=== PATIENT | female | born 1995 | race Caucasian/White ===

== ENCOUNTER 2018-11-08 14:30 | Emergency (ER) | payer BC ==
--- NOTE | 2018-11-08 15:30 | EDM.PDOC ---
ED HPI GENERAL MEDICAL PROBLEM - General Chief Complaint: Neurological Problem Stated Complaint: Facial weakness Time Seen by Provider: 11/08/18 14:40 - History of Present Illness INITIAL COMMENTS - FREE TEXT/NARRATIVE: 23-year-old female now at 37 weeks gestation presents with right-sided facial weakness. Patient has noticed weakness trying to close her right eye and she doesn't close it as tight as she does on the left side. The patient has had intermittent symptoms not being able to smile as much on the right side as compared to the left she does not have significant sensory on it with this however at the onset of her symptoms she was having some odd sensations on the inside of her mouth that she has a hard time trying to describe this seems to have resolved. Patient has not had any recent fevers or chills. She is 37 weeks she is a 1 para 0. Patient has noticed very frequent and active movements. 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: - Past Surgical History HEENT Surgical History: Reports: Adenoidectomy, Tonsillectomy Social & Family History - Family History Family Medical History: Unobtainable - Tobacco Use Smoking Status *Q: Never Smoker - Caffeine Use Caffeine Use: Reports: Soda - Recreational Drug Use Recreational Drug Use: No ED ROS GENERAL - Review of Systems Review Of Systems: See Below Constitutional: Reports: No Symptoms HEENT: Denies: Eye Discharge, Eye Pain Respiratory: Reports: No Symptoms Cardiovascular: Reports: No Symptoms Endocrine: Reports: No Symptoms GI/Abdominal: Reports: No Symptoms : Reports: No Symptoms Musculoskeletal: Reports: No Symptoms Skin: Reports: No Symptoms Neurological: Reports: Other (Facial weakness as described above). Denies: Pre- Existing Deficit Psychiatric: Reports: No Symptoms ED EXAM, NEURO - Physical Exam Exam: See Below Exam Limited By: No Limitations General Appearance: Alert, No Apparent Distress Ears: Normal External Exam, Normal Canal, Hearing Grossly Normal, Normal TMs Nose: Normal Inspection, Normal Mucosa, No Blood Throat/Mouth: Normal Inspection, Normal Lips, Normal Teeth, Normal Gums, Normal Oropharynx, Normal Voice, No Airway Compromise Head Exam: Atraumatic, Normocephalic Neck: Normal Inspection, Supple, Non-Tender, Full Range of Motion Respiratory/Chest: No Respiratory Distress, Lungs Clear, Normal Breath Sounds Cardiovascular: Regular Rate, Rhythm, No Edema, No Murmur Neurological: Alert, Normal Mood/Affect, Other (He seems to close her right eye completely but not as tight as she does some left. And her smile and right sided movement of the lips is slightly diminished compared to the left) Course - Vital Signs Last Recorded V/S: Last Vital Signs Temp 36.5 C 11/08/18 14:47 Pulse 80 11/08/18 14:47 Resp 20 11/08/18 14:47 BP 134/88 11/08/18 14:47 Pulse Ox 99 11/08/18 14:47 - Re-Assessments/Exams Free Text/Narrative Re-Assessment/Exam: 11/08/18 15:[address] Mcgee will start Valtrex and prednisone. The patient has follow-up with Dr. Mcgee the middle of this next week. 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 Follow-up with Dr. Mcgee this next week as scheduled. Use the Valtrex one 3 times a day for 7 days use the prednisone, first dose as soon as you get it then every morning with breakfast thereafter. Use artificial tears to the right eye as needed during the day. Use the Lacri-Lube in the right eye and patch in the closed position nightly as we discussed
== END 2018-11-08 16:15 | disposition home or self-care (01) ==
LOC: JD.OBCHECK 14:30 → JD.ED 14:30 → EDSTATUS 14:36 → JD.ED 16:30
DX: O99.353 Diseases of the nervous system complicating pregnancy, third trimester (principal); G51.0 Bell's palsy; Z91.048 Other nonmedicinal substance allergy status; Z91.018 Allergy to other foods; Z88.8 Allergy status to other drugs, medicaments and biological substances; Z3A.37 37 weeks gestation of pregnancy
CPT/HCPCS: 99283

== ENCOUNTER 2018-11-18 03:26 | Inpatient (IN) | payer BC ==
[~2018-11-18 03:26] MED LIST: Bupivacaine 0.25% 10 ML SDV ONE
[2018-11-18] MEDS ORDERED: Nalbuphine 10 MG/1 ML Vial IVPUSH PRN (04:16)
[2018-11-18] MEDS ORDERED: Sodium Chloride 0.9% 10 ML Syringe FLUSH PRN (04:16)
--- NOTE | 2018-11-18 07:09 | PCM.LDHP ---
L&D History of Present Illness - General Date of Service: 11/18/18 Admit Problem/Dx: Patient Status Order with Admit Dx/Problem 11/18/18 03:52 Patient Status [ADT] Routine 11/18/18 04:16 Patient Status [ADT] Routine Admission Diagnosis/Problem Admission Diagnosis/Problem Source of Information: Patient History Limitations: Reports: No Limitations - History of Present Illness Introduction:: Patient is a 23 y/o at 38 5/7 wks who presents this AM with SROM. Occurred at about 0300 or so this AM. 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: : 1 Para: 0 LMP (Approximate): Musculoskeletal History: Reports: Other (See Below) Other Musculoskeletal History: bunion right foot Neurological History: Reports: Migraines, Other (See Below) Other Neuro History: brambila's palsy 2 weeks ago Psychiatric History: Reports: Anxiety, Depression - Past Surgical History HEENT Surgical History: Reports: Adenoidectomy, Oral Surgery, Tonsillectomy Social & Family History - Family History Family Medical History: Unobtainable - Tobacco Use Smoking Status *Q: Never Smoker - Caffeine Use Caffeine Use: Reports: Soda - Alcohol Use Alcohol Use History: No - Recreational Drug Use Recreational Drug Use: No H&P Review of Systems - Review of Systems: Review Of Systems: See Below General: Reports: No Symptoms Pulmonary: Reports: No Symptoms Cardiovascular: Reports: No Symptoms Gastrointestinal: Reports: No Symptoms Genitourinary: Reports: No Symptoms Musculoskeletal: Reports: No Symptoms Psychiatric: Reports: No Symptoms Neurological: Reports: No Symptoms L&D Exam - Exam Exam: See Below - Vital Signs Vital Signs: Last Vital Signs Temp 36.6 C 11/18/18 03:38 Pulse 63 11/18/18 03:38 Resp 16 11/18/18 03:38 BP 124/78 11/18/18 03:38 Pulse Ox Weight: 69.581 kg - OB Specific Contraction Intensity: Mild Movement: Active Heart Tones: Present Heart Tones per Min: 140 Heart Rate (FHR) Variability: Moderate (6-25 bmp) Presentation: Vertex - Varela Score Varela Score Cervix Position: Midposition Varela Score Consistency: Soft Varela Score Effacement: 31-50% Varela Score Dilation: 1-2 cm Varela Score Infant's Station: -2 Varela Score Total: 6 - Exam General: Alert, Oriented, Cooperative Lungs: Clear to Auscultation, Normal Respiratory Effort Cardiovascular: Regular Rate, Regular Rhythm GI/Abdominal Exam: Soft, Non-Tender Genitourinary: Normal external exam Extremities: Normal Inspection Skin: Warm, Dry, Intact - Patient Data Lab Results Last 24 hrs: Laboratory Results - last 24 hr 11/18/18 11/18/18 Range/Units 03:45 04:25 WBC 10.02 (3.98-10.04) K/mm3 RBC 4.25 (3.98-5.22) M/mm3 Hgb 13.2 (11.2-15.7) gm/dl Hct 39.8 (34.1-44.9) % MCV 93.6 (79.4-94.8) fl MCH 31.1 (25.6-32.2) pg MCHC 33.2 (32.2-35.5) g/dl RDW Std Deviation 45.5 (36.4-46.3) fL Plt Count 160 L (182-369) K/mm3 MPV 13.1 H (9.4-12.3) fl Neut % (Auto) 62.9 (34.0-71.1) % Lymph % (Auto) 26.9 (19.3-51.7) % [place] % (Auto) 8.8 (4.7-12.5) % Eos % (Auto) 1.1 (0.7-5.8) Baso % (Auto) 0.2 (0.1-1.2) % Neut # (Auto) 6.30 H (1.56-6.13) K/mm3 Lymph # (Auto) 2.70 (1.18-3.74) K/mm3 [place] # (Auto) 0.88 H (0.24-0.36) K/mm3 Eos # (Auto) 0.11 (0.04-0.36) K/mm3 Baso # (Auto) 0.02 (0.01-0.08) K/mm3 Membrane Rupture Positive H Result Diagrams: 11/18/18 04:25 - Problem List (1) SROM (spontaneous rupture of membranes) SNOMED Code(s): 852576560 ICD Code: HGY0710 - Status: Acute Current Visit: Yes (2) 38 weeks gestation of SNOMED Code(s): 29350838 ICD Code: Z3A.38 - 38 WEEKS GESTATION OF Status: Acute Current Visit: Yes Problem List Initiated/Reviewed/Updated: Yes Orders Last 24hrs: Active Orders 24 hr Category Date Time Status Patient Status [ADT] Routine ADT 11/18/18 04:16 Active Activity as Tolerated [RC] PFP Care 11/18/18 04:16 Active Communication Order [RC] ASDIRECTED Care 11/18/18 04:16 Active Heart Tones [RC] ASDIRECTED Care 11/18/18 04:16 Active Non Stress Test [RC] PER UNIT ROUTINE Care 11/18/18 03:52 Active Notify Provider [RC] PFP Care 11/18/18 04:16 Active Notify Provider [RC] PRN Care 11/18/18 04:16 Active Peripheral IV Care [RC] . DIRECTED Care 11/18/18 04:16 Active Vital Signs [RC] PER UNIT ROUTINE Care 11/18/18 03:52 Active Regular Diet [DIET] Diet 11/18/18 Breakfast Active RAPID PLASMA REAGIN,RPR [CHEM] Routine Lab 11/18/18 04:25 Received TYPE AND SCREEN [BBK] Stat Lab 11/18/18 04:25 Received Lactated Ringers [Ringers, Lactated] 1,000 ml Med 11/18/18 04:30 Active IV ASDIRECTED Nalbuphine [Nubain] Med 11/18/18 04:16 Active 10 mg IVPUSH Q2H PRN Sodium Chloride 0.9% [Saline Flush] Med 11/18/18 04:16 Active 10 ml FLUSH ASDIRECTED PRN Electronic Heart Tones Ext w TOCO [WOMSER] Oth 11/18/18 04:16 Ordered Routine Electronic Heart Tones Internal [WOMSER] Per Unit Oth 11/18/18 04:16 Ordered Routine Peripheral IV Insertion Adult [OM.PC] Routine Oth 11/18/18 04:16 Ordered Resuscitation Status Routine Resus Stat 11/18/18 03:52 Ordered Medication Orders Lactated Ringer's (Ringers, Lactated) 1,000 mls @ 100 mls/hr IV ASDIRECTED BETTYE Nalbuphine HCl (Nubain) 10 mg IVPUSH Q2H PRN PRN Reason: Pain Sodium Chloride (Saline Flush) 10 ml FLUSH ASDIRECTED PRN PRN Reason: Keep Vein Open Assessment/Plan Comment:: 23 y/o at 38 5/7 wks presents with SROM * Labs to be done * GBS negative, no need for antibiotics * Pain management per patient preference * Anticipate
[2018-11-18] MEDS ORDERED: fentaNYL/Bupivacaine in NS PF 2 MCG-0.125% 250 ML Premix EPIDUR PRN (07:40)
[2018-11-18] MEDS ORDERED: fentaNYL 100 MCG/2 ML SDV EPIDUR PRN (07:40)
[2018-11-18] MEDS ORDERED: diphenhydrAMINE 50 MG/ML SDV IVPUSH PRN (07:40)
[2018-11-18] MEDS ORDERED: ePHEDrine 50 MG/ML SDV IVPUSH PRN (07:40)
[2018-11-18] MEDS ORDERED: Oxytocin/Lactated Ringers 10 UNIT/1,000 ML BAG IV SCH ×2 (10:15)
[2018-11-18] MEDS: Lactated Ringers 1,000 ML IV SCH ×2 (10:17→16:47)
--- NOTE | 2018-11-18 17:20 | PCM.PREANE ---
Preanesthetic Assessment - Procedure Proposed Procedure: Epidural - Anesthesia/Transfusion/Family Hx Anesthesia History: Prior Anesthesia Without Reaction Family History of Anesthesia Reaction: No Transfusion History: No Prior Transfusion(s) - Review of Systems General: Fatigue Pulmonary: No Symptoms Cardiovascular: No Symptoms Gastrointestinal: Abdominal Pain (labor) Neurological: No Symptoms Other: Reports: None - Physical Assessment Vital Signs: Last Vital Signs Temp 36.6 C 11/18/18 03:38 Pulse 63 11/18/18 03:38 Resp 16 11/18/18 03:38 BP 124/78 11/18/18 03:38 Pulse Ox Height: 1.55 m Weight: 69.581 kg ASA Class: 2 Mental Status: Alert & Oriented x3 Airway Class: Mallampati = 1 Dentition: Reports: Normal Dentition Thyro-Mental Finger Breadths: 3 Mouth Opening Finger Breadths: 3 ROM/Head Extension: Full Lungs: Clear to Auscultation, Normal Respiratory Effort Cardiovascular: Regular Rate, Regular Rhythm - Lab Values: Laboratory Last Values WBC 10.02 K/mm3 (3.98-10.04) 11/18/18 04:25 RBC 4.25 M/mm3 (3.98-5.22) 11/18/18 04:25 Hgb 13.2 gm/dl (11.2-15.7) 11/18/18 04:25 Hct 39.8 % (34.1-44.9) 11/18/18 04:25 MCV 93.6 fl (79.4-94.8) 11/18/18 04:25 MCH 31.1 pg (25.6-32.2) 11/18/18 04:25 MCHC 33.2 g/dl (32.2-35.5) 11/18/18 04:25 RDW Std Deviation 45.5 fL (36.4-46.3) 11/18/18 04:25 Plt Count 160 K/mm3 (182-369) L 11/18/18 04:25 MPV 13.1 fl (9.4-12.3) H 11/18/18 04:25 Neut % (Auto) 62.9 % (34.0-71.1) 11/18/18 04:25 Lymph % (Auto) 26.9 % (19.3-51.7) 11/18/18 04:25 [place] % (Auto) 8.8 % (4.7-12.5) 11/18/18 04:25 Eos % (Auto) 1.1 (0.7-5.8) 11/18/18 04:25 Baso % (Auto) 0.2 % (0.1-1.2) 11/18/18 04:25 Neut # (Auto) 6.30 K/mm3 (1.56-6.13) H 11/18/18 04:25 Lymph # (Auto) 2.70 K/mm3 (1.18-3.74) 11/18/18 04:25 [place] # (Auto) 0.88 K/mm3 (0.24-0.36) H 11/18/18 04:25 Eos # (Auto) 0.11 K/mm3 (0.04-0.36) 11/18/18 04:25 Baso # (Auto) 0.02 K/mm3 (0.01-0.08) 11/18/18 04:25 Membrane Rupture Positive H 11/18/18 03:45 Blood Type AB POSITIVE 11/18/18 04:25 Gel Antibody Screen Negative 11/18/18 04:25 - Allergies Allergies/Adverse Reactions: Allergies Allergy/AdvReac Type Severity Reaction Status Date / Time adhesive tape Allergy Itching Verified 11/18/18 03:43 melon Allergy Itching Verified 11/18/18 03:43 sumatriptan [From Imitrex] Allergy Rash Verified 11/18/18 03:43 - Anesthesia Plan Pre-Op Medication Ordered: None - Acknowledgements Anesthesia Type Planned: Epidural Pt an Appropriate Candidate for the Planned Anesthesia: Yes Alternatives and Risks of Anesthesia Discussed w Pt/Guardian: Yes Pt/Guardian Understands and Agrees with Anesthesia Plan: Yes PreAnesthesia Questionnaire Gastrointestinal History: Reports: GERD 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: Musculoskeletal History: Reports: Other (See Below) Other Musculoskeletal History: bunion right foot Neurological History: Reports: Migraines, Other (See Below) Other Neuro History: brambila's palsy 2 weeks ago Psychiatric History: Reports: Anxiety, Depression - Past Surgical History HEENT Surgical History: Reports: Adenoidectomy, Oral Surgery, Tonsillectomy - SUBSTANCE USE Smoking Status *Q: Never Smoker Recreational Drug Use History: No - HOME MEDS Home Medications: Home Meds Folic Acid/Vit B Complex and C [Eql Super B Complex Tablet] 400 mcg PO DAILY 03/26 [History] Vits #93/Iron Fum/FA [ Formula Tablet] 1 tab PO DAILY 11/06/18 [History] Sertraline [Zoloft] 50 mg PO DAILY 11/06/18 [History] - CURRENT (IN HOUSE) MEDS Current Meds: Current Medications Diphenhydramine HCl (Benadryl) 25 mg IVPUSH Q6H PRN PRN Reason: Itching Ephedrine Sulfate (Ephedrine Sulfate) 5 mg IVPUSH ASDIRECTED PRN PRN Reason: HYPOTENTSION Fentanyl (Sublimaze) 100 mcg EPIDUR Q3H PRN PRN Reason: Pain Last Admin: 11/18/18 16:47 Dose: 100 mcg Fentanyl/Bupivacaine HCl (Fentanyl/Bupivacaine/Ns 2 Mcg-0.125% 250 Ml) 2 mcg EPIDUR CONTINUOUS PRN PRN Reason: Pain Last Admin: 11/18/18 16:48 Dose: 2 mcg Lactated Ringer's (Ringers, Lactated) 1,000 mls @ 100 mls/hr IV ASDIRECTED BETTYE Last Admin: 11/18/18 16:47 Dose: 999 mls/hr Oxytocin/Lactated Ringer's (Pitocin In Lr 10 Units/1,000 Ml) 10 unit in 1,000 mls @ 12 mls/hr IV TITRATE BETTYE; Protocol Last Titration: 11/18/18 11:30 Dose: 4 munits/min, 24 mls/hr Oxytocin/Lactated Ringer's (Pitocin In Lr 10 Units/1,000 Ml) 10 unit in 1,000 mls @ 500 mls/hr IV ASDIRECTED BETTYE Nalbuphine HCl (Nubain) 10 mg IVPUSH Q2H PRN PRN Reason: Pain Sodium Chloride (Saline Flush) 10 ml FLUSH ASDIRECTED PRN PRN Reason: Keep Vein Open
--- NOTE | 2018-11-18 19:43 | PCM.PNLD ---
Labor Progress Note - VS & Meds Vital Signs: Last Vital Signs Temp 36.6 C 11/18/18 03:38 Pulse 63 11/18/18 03:38 Resp 16 11/18/18 03:38 BP 124/78 11/18/18 03:38 Pulse Ox Active Medications: Current Medications Diphenhydramine HCl (Benadryl) 25 mg IVPUSH Q6H PRN PRN Reason: Itching Ephedrine Sulfate (Ephedrine Sulfate) 5 mg IVPUSH ASDIRECTED PRN PRN Reason: HYPOTENTSION Fentanyl (Sublimaze) 100 mcg EPIDUR Q3H PRN PRN Reason: Pain Last Admin: 11/18/18 16:47 Dose: 100 mcg Fentanyl/Bupivacaine HCl (Fentanyl/Bupivacaine/Ns 2 Mcg-0.125% 250 Ml) 2 mcg EPIDUR CONTINUOUS PRN PRN Reason: Pain Last Admin: 11/18/18 16:48 Dose: 2 mcg Lactated Ringer's (Ringers, Lactated) 1,000 mls @ 100 mls/hr IV ASDIRECTED BETTYE Last Admin: 11/18/18 16:47 Dose: 999 mls/hr Oxytocin/Lactated Ringer's (Pitocin In Lr 10 Units/1,000 Ml) 10 unit in 1,000 mls @ 12 mls/hr IV TITRATE BETTYE; Protocol Last Titration: 11/18/18 16:50 Dose: 4 munits/min, 24 mls/hr Oxytocin/Lactated Ringer's (Pitocin In Lr 10 Units/1,000 Ml) 10 unit in 1,000 mls @ 500 mls/hr IV ASDIRECTED BETTYE Nalbuphine HCl (Nubain) 10 mg IVPUSH Q2H PRN PRN Reason: Pain Sodium Chloride (Saline Flush) 10 ml FLUSH ASDIRECTED PRN PRN Reason: Keep Vein Open - Uterine Contractions Uterine Monitoring Mode: External [place] Contraction Intensity: Moderate - Monitoring Monitor Mode: External Ultrasound Heart Rate (FHR) Baseline: 135 Heart Rate (FHR) Variability: Marked (>25 bpm) Decelerations: Early, Late, Variable, Intermittent (<50% x 20 min) Strip Review: Category II - Vaginal Exam Dilation (cm): 8 Effacement (Percent): 90 Station: 1 Cervical Position: Anterior - Labor Progress (Free Text) Labor Progress: Patient received epidural around 1730 and was about 3 cm then with forebag. AROM of forebag done. At 181 was 4 cm. Nursing check due to difficult to differentiate decelerations. Pitocin decreased to 4. IUPC just placed now and patient 8 cm. Will adjust as needed
[2018-11-19] MEDS ORDERED: Lidocaine 1% 50 ML MDV ONE (01:00)
--- NOTE | 2018-11-19 01:16 | PCM.DEL ---
L & D Note - General Info Date of Service: 11/19/18 - Delivery Note Labor: Spontaneous Delivery Outcome: Livebirth Delivery Method: Spontaneous Vaginal Delivery-Single Delivery Mode: Spontaneous Presentation: Left Occiput Anterior (RENY) Nuchal Cord: None Anesthesia Type: Epidural Amniotic Fluid Description: Clear Episiotomy Type: None Laceration: 2nd Degree, Labial (left), Vaginal Suture type: Vicryl Suture size: 2-0 Placenta: Intact, Spontaneous Cord: 3 Vessels Estimated Blood Loss: 350 [place]: Bulb Syringe, Stimulated, Warmed, [place] Used, Warmer Used Delivery Comments (Free Text/Narrative):: Patient found to be complete and began pushing. With maternal pushing effort head delivered from an RENY presentation. No nuchal cord present. With gentle downward traction the shoulders and body delivered. Infant placed on maternal abdomen. Cord clamped and cut. Cord blood obtained. Placenta allowed time to separate and expelled intact. Brisk bleeding noted from laceration site. Vessel note on left vaginal sulcus. This was controlled with a running, locked 2-0 vicryl. Remainder of laceration then repaired with an additional 2-0 vicryl. Lastly, left labia laceration repaired with a 2-0 vicryl. Hemostasis noted at end - General Info Date of Service: 11/19/18 - Patient Data Vitals - Most Recent: Last Vital Signs Temp 36.6 C 11/18/18 03:38 Pulse 63 11/18/18 03:38 Resp 16 11/18/18 03:38 BP 124/78 11/18/18 03:38 Pulse Ox Weight - Most Recent: 69.581 kg I&O - Last 24 Hours: Intake & Output 11/18/18 11/18/18 11/19/18 14:59 22:59 06:59 Intake Total 240 Balance 240 - Problem List & Annotations (1) SROM (spontaneous rupture of membranes) SNOMED Code(s): 911849430 Code(s): RHN1074 - Status: Acute Current Visit: Yes (2) 38 weeks gestation of SNOMED Code(s): 56162468 Code(s): Z3A.38 - 38 WEEKS GESTATION OF Status: Acute Current Visit: Yes (3) Vaginal delivery SNOMED Code(s): 105095140 Code(s): O80 - ENCOUNTER FOR FULL-TERM UNCOMPLICATED DELIVERY Status: Acute Current Visit: Yes - Problem List Review Problem List Initiated/Reviewed/Updated: Yes - My Orders Last 24 Hours: My Active Orders 11/18/18 10:15 Oxytocin/Lactated Ringers [Pitocin in LR 10 Units/1,000 ML] 10 unit in 1,000 ml IV TITRATE - Assessment Assessment:: 23 y/o G1 now P1001 PPD#0 from at 38 6/7 wks - Plan Plan:: * Routine cares * Encourage breast feeding * Discharge home in 1-2 days
[2018-11-19] MEDS ORDERED: Witch Hazel Medicated Pads 40/Jar TOP PRN (01:58)
[2018-11-19] MEDS ORDERED: Docusate Sodium 100 MG Cap PO PRN (01:58)
[2018-11-19] MEDS ORDERED: Benzocaine/Menthol 20%-0.5% Spray 56 GM Canister TOP PRN (01:58)
[2018-11-19] MEDS ORDERED: Acetaminophen 325 MG Tab PO PRN (01:58)
[2018-11-19] MEDS: Ibuprofen 600 MG Tab PO PRN ×3 (02:49→19:43)
--- NOTE | 2018-11-19 06:30 | PCM48HPAN ---
Post Anesthesia Note - EVALUATION WITHIN 48HRS OF ANESTHETIC Vital Signs in Normal Range: Yes Patient Participated in Evaluation: Yes Respiratory Function Stable: Yes Airway Patent: Yes Cardiovascular Function Stable: Yes Hydration Status Stable: Yes Pain Control Satisfactory: Yes Nausea and Vomiting Control Satisfactory: Yes Mental Status Recovered: Yes Vital Signs: Last Vital Signs Temp 36.2 C 11/19/18 03:00 Pulse 98 11/19/18 03:00 Resp 16 11/19/18 03:00 BP 103/63 11/19/18 03:00 Pulse Ox 98 11/19/18 03:00 - COMMENTS/OBSERVATIONS Free Text/Narrative:: no anesthesia complications noted
[2018-11-19] MEDS ORDERED: Sertraline 50 MG Tab PO SCH ×2 (09:00→21:00)
[2018-11-20] MEDS: Ibuprofen 600 MG Tab PO PRN (03:01)
--- NOTE | 2018-11-20 06:47 | PCM.PNPP ---
- General Info Date of Service: 11/20/18 Functional Status: Reports: Pain Controlled, Tolerating Diet, Ambulating, Urinating - Review of Systems General: Reports: No Symptoms Pulmonary: Reports: No Symptoms Cardiovascular: Reports: No Symptoms Gastrointestinal: Reports: No Symptoms Genitourinary: Reports: Other (discomfort at laceration site) Musculoskeletal: Reports: No Symptoms Neurological: Reports: No Symptoms - Patient Data Vital Signs - Most Recent: Last Vital Signs Temp 36.9 C 11/20/18 03:38 Pulse 75 11/20/18 03:38 Resp 16 11/20/18 03:38 BP 106/70 11/20/18 03:38 Pulse Ox 97 11/20/18 03:38 Weight - Most Recent: 69.581 kg Med Orders - Current: Current Medications Acetaminophen (Tylenol) 650 mg PO Q4H PRN PRN Reason: mild pain or fever Last Admin: 11/19/18 07:59 Dose: 650 mg Benzocaine/Menthol (Dermoplast Pain Relief Mode) 0 gm TOP ASDIRECTED PRN PRN Reason: Perineal Comfort Measure Last Admin: 11/19/18 02:49 Dose: 1 can Docusate Sodium (Colace) 100 mg PO BID PRN PRN Reason: Constipation Last Admin: 11/19/18 19:45 Dose: 100 mg Ibuprofen (Motrin) 600 mg PO Q6H PRN PRN Reason: Mild pain or fever Last Admin: 11/20/18 03:01 Dose: 600 mg Sertraline HCl (Zoloft) 50 mg PO BEDTIME BETTYE Last Admin: 11/19/18 21:09 Dose: Not Given [place] Rachel (Tucks) 1 pad TOP ASDIRECTED PRN PRN Reason: Perineal Comfort Measure Last Admin: 11/19/18 02:48 Dose: 1 jar Discontinued Medications Bupivacaine HCl (Sensorcaine-Mpf 0.25%) 10 ml .ROUTE .STK-MED ONE Stop: 11/18/18 00:01 Diphenhydramine HCl (Benadryl) 25 mg IVPUSH Q6H PRN PRN Reason: Itching Ephedrine Sulfate (Ephedrine Sulfate) 5 mg IVPUSH ASDIRECTED PRN PRN Reason: HYPOTENTSION Fentanyl (Sublimaze) 100 mcg EPIDUR Q3H PRN PRN Reason: Pain Last Admin: 11/18/18 16:47 Dose: 100 mcg Fentanyl/Bupivacaine HCl (Fentanyl/Bupivacaine/Ns 2 Mcg-0.125% 250 Ml) 2 mcg EPIDUR CONTINUOUS PRN PRN Reason: Pain Last Admin: 11/18/18 16:48 Dose: 2 mcg Lactated Ringer's (Ringers, Lactated) 1,000 mls @ 100 mls/hr IV ASDIRECTED BETTYE Last Admin: 11/18/18 16:47 Dose: 999 mls/hr Oxytocin/Lactated Ringer's (Pitocin In Lr 10 Units/1,000 Ml) 10 unit in 1,000 mls @ 12 mls/hr IV TITRATE BETTYE; Protocol Last Titration: 11/18/18 21:15 Dose: 3 munits/min, 18 mls/hr Oxytocin/Lactated Ringer's (Pitocin In Lr 10 Units/1,000 Ml) 10 unit in 1,000 mls @ 500 mls/hr IV ASDIRECTED BETTYE Last Admin: 11/19/18 01:35 Dose: 500 mls/hr Lidocaine HCl (Xylocaine 1%) Confirm Administered Dose 50 ml .ROUTE .[facility]-MED ONE Stop: 11/19/18 01:01 Last Admin: 11/19/18 00:55 Dose: 50 ml Nalbuphine HCl (Nubain) 10 mg IVPUSH Q2H PRN PRN Reason: Pain Sertraline HCl (Zoloft) 50 mg PO DAILY BETTYE Sodium Chloride (Saline Flush) 10 ml FLUSH ASDIRECTED PRN PRN Reason: Keep Vein Open - Interaction Infant Disposition, : Forks in Room with Family Infant Interaction: Holding Feeding: Attempted ; Nursed Fair/Poor Support Person: - Recovery Exam Fundal Tone: Firm Fundal Level: At Umbilicus Fundal Placement: Midline Lochia Amount: Small Lochia Color: Rubra/Red Perineum Description: Other (see below) Other Perinuem Description: same Episiotomy/Laceration: Approximated Bladder Status: Voiding Urinary Elimination: Voided - Exam General: Alert, Oriented, Cooperative GI/Abdominal Exam: Soft, Non-Tender Extremities: Normal Inspection Skin: Warm, Dry, Intact - Problem List & Annotations (1) SROM (spontaneous rupture of membranes) SNOMED Code(s): 513129499 Code(s): [id number] - Status: Acute Current Visit: Yes (2) 38 weeks gestation of SNOMED Code(s): 03072648 Code(s): Z3A.38 - 38 WEEKS GESTATION OF Status: Acute Current Visit: Yes (3) Vaginal delivery SNOMED Code(s): 914807079 Code(s): O80 - ENCOUNTER FOR FULL-TERM UNCOMPLICATED DELIVERY Status: Acute Current Visit: Yes - Problem List Review Problem List Initiated/Reviewed/Updated: Yes - My Orders Last 24 Hours: My Active Orders 11/19/18 21:00 Sertraline [Zoloft] 50 mg PO BEDTIME 11/19/18 Breakfast Regular Diet [DIET] 11/20/18 01:58 Heat Therapy [OM.PC] PRN - Assessment Assessment:: 23 y/o G1 now P1001 PPD#1 from at 38 6/7 wks - Plan Plan:: * Routine cares * Encourage breast feeding, will arrange follow up appointment in Breast feeding clinic * Desires discharge home today
--- NOTE | 2018-11-20 07:12 | PCM.DCSUM1 ---
Discharge Summary - Discharge Data Discharge Date: 11/20/18 Discharge Disposition: Home, Self-Care 01 Condition: Good - Referral to Home Health Primary Care Physician: Mery Mcgee MD - Discharge Diagnosis/Problem(s) (1) SROM (spontaneous rupture of membranes) SNOMED Code(s): 358681519 ICD Code: [id number] - Status: Acute Current Visit: Yes (2) 38 weeks gestation of SNOMED Code(s): 06477628 ICD Code: Z3A.38 - 38 WEEKS GESTATION OF Status: Acute Current Visit: Yes (3) Vaginal delivery SNOMED Code(s): 389541751 ICD Code: O80 - ENCOUNTER FOR FULL-TERM UNCOMPLICATED DELIVERY Status: Acute Current Visit: Yes - Patient Summary/Data Complications: None Consults: None Recommended Follow-up Testing/Procedures: Follow up in 3 weeks for check Hospital Course: 23 y/o at 38 5/7 wks who presented with SROM. Augmentation begun with pitocin. Progressed slowly, but well to complete dilation and underwent an uncomplicated . See delivery note. did well and was discharged home on PPD#1 - Patient Instructions Diet: Regular Diet as Tolerated Activity: As Tolerated Activity, Other: Pelvic rest for 6 weeks Driving: May Drive Today Showering/Bathing: May Shower Showering/Bathing, Other: May bathe Notify Provider of: Fever, Increased Pain, Swelling and Redness, Drainage, Nausea and/or Vomiting - Discharge Plan *PRESCRIPTION DRUG MONITORING PROGRAM REVIEWED*: Not Applicable *COPY OF PRESCRIPTION DRUG MONITORING REPORT IN PATIENT ANTONY: Not Applicable Home Medications: Home Meds Vits #93/Iron Fum/FA [ Formula Tablet] 1 tab PO DAILY 11/06/18 [History] Sertraline [Zoloft] 50 mg PO DAILY 11/06/18 [History] Docusate Sodium [Colace] 100 mg PO BID PRN cap 11/19/18 [Rx] Ibuprofen [Motrin] 600 mg PO Q6H PRN tablet 11/19/18 [Rx] Referrals: Mery Mcgee MD [Primary Care Provider] - (3 weeks for check ) - Discharge Summary/Plan Comment DC Time >30 min.: No - Patient Data Vitals - Most Recent: Last Vital Signs Temp 36.9 C 11/20/18 03:38 Pulse 75 11/20/18 03:38 Resp 16 11/20/18 03:38 BP 106/70 11/20/18 03:38 Pulse Ox 97 11/20/18 03:38 Weight - Most Recent: 69.581 kg Med Orders - Current: Current Medications Acetaminophen (Tylenol) 650 mg PO Q4H PRN PRN Reason: mild pain or fever Last Admin: 11/19/18 07:59 Dose: 650 mg Benzocaine/Menthol (Dermoplast Pain Relief [place]) 0 gm TOP ASDIRECTED PRN PRN Reason: Perineal Comfort Measure Last Admin: 11/19/18 02:49 Dose: 1 can Docusate Sodium (Colace) 100 mg PO BID PRN PRN Reason: Constipation Last Admin: 11/19/18 19:45 Dose: 100 mg Ibuprofen (Motrin) 600 mg PO Q6H PRN PRN Reason: Mild pain or fever Last Admin: 11/20/18 03:01 Dose: 600 mg Sertraline HCl (Zoloft) 50 mg PO BEDTIME BETTYE Last Admin: 11/19/18 21:09 Dose: Not Given [place] Rachel (Tucks) 1 pad TOP ASDIRECTED PRN PRN Reason: Perineal Comfort Measure Last Admin: 11/19/18 02:48 Dose: 1 jar Discontinued Medications Bupivacaine HCl (Sensorcaine-Mpf 0.25%) 10 ml .ROUTE .STK-MED ONE Stop: 11/18/18 00:01 Diphenhydramine HCl (Benadryl) 25 mg IVPUSH Q6H PRN PRN Reason: Itching Ephedrine Sulfate (Ephedrine Sulfate) 5 mg IVPUSH ASDIRECTED PRN PRN Reason: HYPOTENTSION Fentanyl (Sublimaze) 100 mcg EPIDUR Q3H PRN PRN Reason: Pain Last Admin: 11/18/18 16:47 Dose: 100 mcg Fentanyl/Bupivacaine HCl (Fentanyl/Bupivacaine/Ns 2 Mcg-0.125% 250 Ml) 2 mcg EPIDUR CONTINUOUS PRN PRN Reason: Pain Last Admin: 11/18/18 16:48 Dose: 2 mcg Lactated Ringer's (Ringers, Lactated) 1,000 mls @ 100 mls/hr IV ASDIRECTED BETTYE Last Admin: 11/18/18 16:47 Dose: 999 mls/hr Oxytocin/Lactated Ringer's (Pitocin In Lr 10 Units/1,000 Ml) 10 unit in 1,000 mls @ 12 mls/hr IV TITRATE BETTYE; Protocol Last Titration: 11/18/18 21:15 Dose: 3 munits/min, 18 mls/hr Oxytocin/Lactated Ringer's (Pitocin In Lr 10 Units/1,000 Ml) 10 unit in 1,000 mls @ 500 mls/hr IV ASDIRECTED BETTYE Last Admin: 11/19/18 01:35 Dose: 500 mls/hr Lidocaine HCl (Xylocaine 1%) Confirm Administered Dose 50 ml .ROUTE .STK-MED ONE Stop: 11/19/18 01:01 Last Admin: 11/19/18 00:55 Dose: 50 ml Nalbuphine HCl (Nubain) 10 mg IVPUSH Q2H PRN PRN Reason: Pain Sertraline HCl (Zoloft) 50 mg PO DAILY BETTYE Sodium Chloride (Saline Flush) 10 ml FLUSH ASDIRECTED PRN PRN Reason: Keep Vein Open
== END 2018-11-20 11:00 | disposition home or self-care (01) | DRG 560 ==
LOC: JD.OBCHECK 03:26 → JD.OB 03:30 → JD.OBCHECK 04:23 → JD.OB 04:24 → OBSVTOIN 11-19 00:46 → JD.OB 11-19 00:47
PROVIDERS: ADMIT Obstetrics & Gynecology; ATTEND Obstetrics & Gynecology
PROC: 10E0XZZ Delivery of Products of Conception, External Approach (ICD-10-PCS; principal; 2018-11-19)
PROC: 0KQM0ZZ Repair Perineum Muscle, Open Approach (ICD-10-PCS; 2018-11-19)
PROC: 3E0R3BZ Introduction of Anesthetic Agent into Spinal Canal, Percutaneous Approach (ICD-10-PCS; 2018-11-19)
DX: O99.344 Other mental disorders complicating childbirth (principal); F41.9 Anxiety disorder, unspecified; F32.9 Major depressive disorder, single episode, unspecified; Z37.0 Single live birth; O70.0 First degree perineal laceration during delivery; Z3A.38 38 weeks gestation of pregnancy; Z91.09 Other allergy status, other than to drugs and biological substances; Z91.018 Allergy to other foods; Z88.8 Allergy status to other drugs, medicaments and biological substances; Z90.49 Acquired absence of other specified parts of digestive tract
CPT/HCPCS: 01967; 36415; 51702; 59025; 59409; 84112; 85025; 86592; 86850; 86900; 86901; A9270-GY; J2001; J2590; J3010; J3490; J7120